=== PATIENT | female | born 1980 | race Hispanic/Latino ===

== ENCOUNTER 2017-07-26 18:37 | Emergency (ER) | payer OTHER, MEDICARE ==
[~2017-07-26 18:37] MED LIST: HYDR-4060 PO; METR500T PO; NAPR220C15 PO; NORG1TAB15 PO; PRED1TAB PO
[2017-07-26 19:12] LABS: APPEARANCE,URINE Clear (CLEAR); BILIRUBIN,URINE Negative (NEGATIVE); COLOR,URINE Yellow (YELLOW); GLUCOSE, URINE (UA) Negative (NEGATIVE); KETONES,URINE Trace mg/dL (NEGATIVE); LEUKOCYTE ESTERASE ,URINE Trace (NEGATIVE); NITRATE,URINE Negative (NEGATIVE); OCCULT BLOOD,URINE Negative (NEGATIVE); PROTEIN,URINE Negative (NEGATIVE); UROBILINOGEN,URINE 0.2 mg/dL (0.2-1.0)
[2017-07-26 19:14] LABS: HCG,QUAL RESULT NEGATIVE (NEGATIVE)
[2017-07-26 19:22] LABS: BACTERIA,URINE Rare /HPF (None Seen); RBC,URINE None Seen /HPF (0-1); WBC,URINE 0-1 /HPF (0-1)
[2017-07-26] MEDS ORDERED: IPRATROPIUM/ALBUTEROL SULFATE 3 ML SOLUTION IH ONE (19:23)
[2017-07-26 19:45] LABS: RAPID GROUP A STREP NEGATIVE (NEGATIVE)
== END 2017-07-26 20:10 | disposition home or self-care (01) ==
LOC: EDH 18:37
DX: J10.1 Influenza due to other identified influenza virus with other respiratory manifestations (principal); Z98.890 Other specified postprocedural states; Z90.49 Acquired absence of other specified parts of digestive tract
CPT/HCPCS: 81001; 81025; 87804; 87880; 94640

== ENCOUNTER 2017-08-16 21:28 | Inpatient (IN) | payer OTHER, MEDICARE ==
[~2017-08-16] VITALS: Ht 160 cm; Wt 64.1 kg
[2017-08-16] MEDS ORDERED: SODIUM CHLORIDE 0.9% 1000ML 2,000 ML IV ONE (21:59)
[2017-08-16] MEDS ORDERED: GUAIFENESIN-CODEINE 5 ML SYRUP ONE (22:00)
[2017-08-16 22:19] LABS: APPEARANCE,URINE Cloudy (CLEAR); BILIRUBIN,URINE Small (NEGATIVE); COLOR,URINE Dark Yellow (YELLOW); GLUCOSE, URINE (UA) Negative (NEGATIVE); KETONES,URINE Negative (NEGATIVE); LEUKOCYTE ESTERASE ,URINE Negative (NEGATIVE); NITRATE,URINE Negative (NEGATIVE); OCCULT BLOOD,URINE Negative (NEGATIVE); PROTEIN,URINE Negative (NEGATIVE)
[2017-08-16 22:26] LABS: BASOPHILS % (AUTO) 0.4 % (0.0-5.0); EOSINOPHILS % (AUTO) 0.8 % (0.0-8.0); HEMATOCRIT 38.9 % (36-48); LYMPHOCYTES % (AUTO) 11.5 % (21.0-51.0); MEAN CORPUSCULAR HEMOGLOBIN 34.1 pg (27.0-33.0); MEAN CORPUSCULAR HGB CONC 34.4 g/dL (32.0-36.0); MONOCYTES % (AUTO) 3.2 % (3.0-13.0); NEUTROPHILS % (AUTO) 84.1 % (40.0-77.0); PLATELET COUNT (AUTO) 342 K/uL (130-400); RED BLOOD CELL COUNT(AUTO) 3.93 MIL/uL (4.00-5.50); RED CELL DISTRIBUTION WIDTH 12.6 % (11.0-15.5); WHITE BLOOD COUNT (AUTO) 17.7 K/uL (4.8-10.8)
[2017-08-16 22:32] LABS: HCG,QUAL RESULT NEGATIVE (NEGATIVE)
[2017-08-16 22:34] LABS: BACTERIA,URINE Few /HPF (None Seen); RBC,URINE None Seen /HPF (0-1); SQUAMOUS EPITHELIAL CELL,UR Few /LPF (0-2); WBC,URINE None Seen /HPF (0-1)
[2017-08-16 22:35] LABS: FINE GRANULAR CASTS,URINE 0-2 /LPF (None Seen); MUCUS,URINE Many LPF (None Seen); RENAL EPITHELIAL CELLS,URINE Few /LPF (None Seen)
[2017-08-16 22:38] LABS: CREATININE 1.1 mg/dL (0.5-1.5); POTASSIUM 3.4 mmol/L (3.5-5.1)
[2017-08-16 22:43] LABS: ALBUMIN 3.6 g/dL (3.5-5.0); BILIRUBIN,TOTAL 0.3 mg/dL (0.2-1.0); TOTAL PROTEIN, SERUM 8.1 g/dL (6.0-8.3)
[2017-08-16] MEDS ORDERED: OSELTAMIVIR PHOSPHATE 75 MG CAP ONE (23:49)
[2017-08-16] MEDS ORDERED: LEVOFLOXACIN 750 MG/D5W 150 ML 150 ML ONE (23:49)
[2017-08-17] MEDS ORDERED: IPRATROPIUM/ALBUTEROL SULFATE 3 ML SOLUTION IH ONE ×2 (00:16→07:26)
[2017-08-17] MEDS ORDERED: IPRATROPIUM/ALBUTEROL SULFATE 3 ML SOLUTION IH PRN (02:15)
[2017-08-17] MEDS: SODIUM CHLORIDE 0.9% 1000ML 1,000 ML IV SCH ×3 (02:15→21:16)
[2017-08-17] MEDS ORDERED: PHARMACY COMMUNICATION MISC SCH (02:15)
[2017-08-17] MEDS ORDERED: SODIUM CHLORIDE 0.9% 1000ML 1,000 ML IV ONE (05:13)
[2017-08-17] MEDS ORDERED: ACETAMINOPHEN 325 MG TAB ONE (05:39)
[2017-08-17] MEDS: OSELTAMIVIR PHOSPHATE 75 MG CAP PO SCH ×2 (09:00→21:16)
[2017-08-17] MEDS ORDERED: LEVOFLOXACIN 500 MG/D5W 100 ML 100 ML ONE (11:19)
[2017-08-17] MEDS ORDERED: OSELTAMIVIR PHOSPHATE 75 MG CAP ONE (11:20)
[2017-08-17 14:16] VITALS: BP 126/82
[2017-08-17] MEDS ORDERED: PRED5SOL PO (14:39)
[2017-08-17] MEDS ORDERED: ACETAMINOPHEN 325 MG TAB PO PRN (15:30)
[2017-08-17 16:00] VITALS: BP 134/64
[2017-08-17] MEDS: METHYLPREDNISOLONE SOD SUCC 40MG/ML 1ML IVP SCH (18:05)
[2017-08-17] MEDS: GUAIFENESIN-DM 200/20 MG 10 ML PO PRN ×2 (18:06→23:24)
[2017-08-17] MEDS ORDERED: PRED5TAB44 PO (18:10)
[2017-08-17] MEDS ORDERED: NORG-1 PO (18:10)
[2017-08-17 20:00] VITALS: BP 130/69
[2017-08-17] MEDS ORDERED: HYDRALAZINE HCL 20 MG/ML VIAL IV PRN (20:15)
[2017-08-17] MEDS ORDERED: ONDANSETRON HCL 4 MG/2 ML VIAL IVP PRN (20:15)
[2017-08-17 23:15] VITALS: BP 118/68
[2017-08-18 04:35] VITALS: BP 125/76
[2017-08-18 05:33] LABS: BASOPHILS % (AUTO) 0.2 % (0.0-5.0); HEMATOCRIT 35.4 % (36-48); LYMPHOCYTES % (AUTO) 15.1 % (21.0-51.0); MEAN CORPUSCULAR HGB CONC 34.8 g/dL (32.0-36.0); MEAN CORPUSCULAR VOLUME 97.7 fL (79-99); MONOCYTES % (AUTO) 1.6 % (3.0-13.0); NEUTROPHILS % (AUTO) 83.1 % (40.0-77.0); PLATELET COUNT (AUTO) 336 K/uL (130-400); RED BLOOD CELL COUNT(AUTO) 3.62 MIL/uL (4.00-5.50); RED CELL DISTRIBUTION WIDTH 12.8 % (11.0-15.5); WHITE BLOOD COUNT (AUTO) 11.2 K/uL (4.8-10.8)
[2017-08-18 05:59] LABS: CREATININE 0.7 mg/dL (0.5-1.5); POTASSIUM 3.8 mmol/L (3.5-5.1)
[2017-08-18] MEDS: METHYLPREDNISOLONE SOD SUCC 40MG/ML 1ML IVP SCH ×2 (06:57→10:17)
[2017-08-18 07:30] VITALS: BP 116/60
[2017-08-18] MEDS ORDERED: ENOXAPARIN SODIUM 40 MG/0.4 ML SYRINGE SQ SCH (09:00)
[2017-08-18] MEDS: SODIUM CHLORIDE 0.9% 1000ML 1,000 ML IV SCH ×2 (09:35→10:15)
[2017-08-18] MEDS: OSELTAMIVIR PHOSPHATE 75 MG CAP PO SCH (10:13)
[2017-08-18] MEDS: GUAIFENESIN-DM 200/20 MG 10 ML PO PRN (10:22)
[2017-08-18 11:00] VITALS: BP 129/72
[2017-08-18] MEDS ORDERED: PRED20TA3 PO (11:04)
[2017-08-18] MEDS ORDERED: ALBU8.5H8 IH (11:04)
[2017-08-18] MEDS ORDERED: OSEL75 PO (11:04)
[2017-08-18] MEDS ORDERED: BENZ-51 PO (11:04)
[2017-08-18] MEDS ORDERED: LEVO500T2 PO (11:04)
[2017-08-18] MEDS ORDERED: LEVOFLOXACIN 500 MG/D5W 100 ML 100 ML IV SCH (11:50)
== END 2017-08-18 17:50 | disposition home or self-care (01) | DRG 872 ==
LOC: EDH 21:28 → EDHIP 08-17 00:02 → 3CH 08-17 13:39
PROVIDERS: ADMIT Family Medicine; ATTEND Family Medicine
DX: A41.9 Sepsis, unspecified organism (principal); E87.2 Acidosis; J20.9 Acute bronchitis, unspecified; E86.0 Dehydration; M06.9 Rheumatoid arthritis, unspecified; Z79.899 Other long term (current) drug therapy; J10.1 Influenza due to other identified influenza virus with other respiratory manifestations; Z90.49 Acquired absence of other specified parts of digestive tract
CPT/HCPCS: 36415; 71046; 80048; 80053; 81001; 81025; 83605; 85025; 87040; 87088; 87633; 87804; 94640; 94664; J1650; J1956; J2920; J7030

== ENCOUNTER 2018-07-05 22:03 | Emergency (ER) | payer MEDICARE ==
[~2018-07-05 22:03] MED LIST changes: +ALBU8.5H8 IH; +AMOX-429 PO; +FOLIC ACID; -HYDR-4060 PO; +METH25VI11 SQ; -METR500T PO; -NAPR220C15 PO; +NORG-1 PO; -NORG1TAB15 PO; -PRED1TAB PO; +PRED5TAB PO; +RANITIDINE PO; +TOFA11TA PO
[2018-07-05 22:30] LABS: HCG,QUAL RESULT NEGATIVE (NEGATIVE)
[2018-07-05 22:31] LABS: APPEARANCE,URINE Clear (CLEAR); BILIRUBIN,URINE Negative (NEGATIVE); COLOR,URINE Yellow (YELLOW); GLUCOSE, URINE (UA) Negative (NEGATIVE); KETONES,URINE Trace mg/dL (NEGATIVE); LEUKOCYTE ESTERASE ,URINE Small (NEGATIVE); NITRATE,URINE Negative (NEGATIVE); OCCULT BLOOD,URINE Moderate (NEGATIVE); PROTEIN,URINE Negative (NEGATIVE); UROBILINOGEN,URINE 0.2 mg/dL (0.2-1.0)
[2018-07-05 22:46] LABS: BACTERIA,URINE Few /HPF (None Seen); CALCIUM OXALATE CRYSTALS,UR Moderate /LPF (None Seen); MUCUS,URINE Moderate LPF (None Seen); SQUAMOUS EPITHELIAL CELL,UR Moderate /HPF (0-2); URIC ACID CRYSTALS,URINE Many /LPF (None Seen)
[2018-07-05 22:50] LABS: BASOPHILS % (AUTO) 0.5 % (0.0-5.0); EOSINOPHILS % (AUTO) 0.2 % (0.0-8.0); LYMPHOCYTES % (AUTO) 17.1 % (21.0-51.0); MEAN CORPUSCULAR HEMOGLOBIN 33.3 pg (27.0-33.0); MEAN CORPUSCULAR HGB CONC 34.1 g/dL (32.0-36.0); MEAN CORPUSCULAR VOLUME 97.8 fL (79-99); MONOCYTES % (AUTO) 3.5 % (3.0-13.0); NEUTROPHILS % (AUTO) 78.7 % (40.0-77.0); PLATELET COUNT (AUTO) 287 K/uL (130-400); RED BLOOD CELL COUNT(AUTO) 3.58 MIL/uL (4.00-5.50); RED CELL DISTRIBUTION WIDTH 12.9 % (11.0-15.5); WHITE BLOOD COUNT (AUTO) 7.6 K/uL (4.8-10.8)
[2018-07-05 23:00] LABS: CREATININE 0.9 mg/dL (0.5-1.5); POTASSIUM 4.4 mmol/L (3.5-5.1)
[2018-07-05] MEDS ORDERED: KETOROLAC TROMETHAMINE 30MG/ML ONE (23:02)
[2018-07-05] MEDS ORDERED: SODIUM CHLORIDE 0.9% 1000ML 1,000 ML IV ONE (23:02)
[2018-07-05] MEDS ORDERED: ONDANSETRON HCL 4 MG/2 ML VIAL ONE (23:02)
[2018-07-05 23:05] LABS: ALBUMIN 3.6 g/dL (3.5-5.0); BILIRUBIN,TOTAL 0.2 mg/dL (0.2-1.0); TOTAL PROTEIN, SERUM 7.8 g/dL (6.0-8.3)
[2018-07-06] MEDS ORDERED: CEFTRIAXONE SODIUM 1 GM ONE (01:25)
[2018-07-06] MEDS ORDERED: PHENAZOPYRIDINE HCL 200 MG TABLET ONE (01:26)
[2018-07-06] MEDS ORDERED: ACETAMINOPHEN-CODEINE 300/30MG TAB ONE (01:27)
[2018-07-06] MEDS ORDERED: SODIUM CHLORIDE 0.9% 50 ML IV ONE (01:27)
== END 2018-07-06 02:04 | disposition home or self-care (01) ==
LOC: EDH 22:03
DX: N39.0 Urinary tract infection, site not specified (principal); N83.201 Unspecified ovarian cyst, right side; R10.31 Right lower quadrant pain; Z88.8 Allergy status to other drugs, medicaments and biological substances
CPT/HCPCS: 36415; 74176; 76830; 76856; 80053; 81001; 81025; 85025; 96361; 96374; 96375; 99284; J0696; J1885; J2405; J7030

== ENCOUNTER 2018-12-24 15:57 | Emergency (ER) | payer MEDICARE ==
[2018-12-24] MEDS ORDERED: KETOROLAC TROMETHAMINE 60 MG/2 ML VIAL ONE (17:05)
== END 2018-12-24 17:30 | disposition home or self-care (01) ==
LOC: EDH 15:57
DX: M75.02 Adhesive capsulitis of left shoulder (principal); M06.9 Rheumatoid arthritis, unspecified; Z88.8 Allergy status to other drugs, medicaments and biological substances; Z98.890 Other specified postprocedural states; Z90.49 Acquired absence of other specified parts of digestive tract
CPT/HCPCS: 99282; J1885

== ENCOUNTER 2019-01-13 23:13 | Emergency (ER) | payer MEDICARE ==
[2019-01-13 23:47] LABS: BASOPHILS % (AUTO) 1.2 % (0.0-5.0); EOSINOPHILS % (AUTO) 1.2 % (0.0-8.0); HEMATOCRIT 40.4 % (36-48); LYMPHOCYTES % (AUTO) 20.2 % (21.0-51.0); MEAN CORPUSCULAR HEMOGLOBIN 31.4 pg (27.0-33.0); MEAN CORPUSCULAR HGB CONC 33.5 g/dL (32.0-36.0); MEAN CORPUSCULAR VOLUME 93.6 fL (79-99); MONOCYTES % (AUTO) 3.5 % (3.0-13.0); NEUTROPHILS % (AUTO) 73.9 % (40.0-77.0); NUCLEATED RED BLOOD CELLS 0.1 % (0.0-0.19); PLATELET COUNT (AUTO) 345 K/uL (130-400); RED BLOOD CELL COUNT(AUTO) 4.32 MIL/uL (4.00-5.50); RED CELL DISTRIBUTION WIDTH 12.3 % (11.0-15.5); WHITE BLOOD COUNT (AUTO) 10.7 K/uL (4.8-10.8)
[2019-01-14] MEDS ORDERED: IBUPROFEN 600 MG TABLET ONE (00:13)
[2019-01-14 00:35] LABS: APPEARANCE,URINE Clear (CLEAR); BILIRUBIN,URINE Negative (NEGATIVE); COLOR,URINE Yellow (YELLOW); GLUCOSE, URINE (UA) Negative (NEGATIVE); KETONES,URINE Negative (NEGATIVE); LEUKOCYTE ESTERASE ,URINE Negative (NEGATIVE); NITRATE,URINE Negative (NEGATIVE); OCCULT BLOOD,URINE Large (NEGATIVE); PROTEIN,URINE Negative (NEGATIVE)
[2019-01-14 00:54] LABS: AMORPHOUS SEDIMENT,UR Rare /LPF (None Seen); BACTERIA,URINE None Seen /HPF (None Seen); MUCUS,URINE Rare LPF (None Seen); SQUAMOUS EPITHELIAL CELL,UR Rare /HPF (0-2); WBC,URINE None Seen /HPF (0-1)
== END 2019-01-14 01:17 | disposition home or self-care (01) ==
LOC: EDH 23:13
DX: N93.9 Abnormal uterine and vaginal bleeding, unspecified (principal); N89.8 Other specified noninflammatory disorders of vagina; M06.9 Rheumatoid arthritis, unspecified; Z88.8 Allergy status to other drugs, medicaments and biological substances
CPT/HCPCS: 36415; 81001; 84702; 85025; 86900; 86901

== ENCOUNTER 2019-11-17 10:00 | Inpatient (IN) | payer MEDICARE ==
[~2019-11-17] VITALS: Ht 163.8 cm; Wt 70.7 kg
[~2019-11-17 10:00] MED LIST changes: -ALBU8.5H8 IH; -AMOX-429 PO; +FOLI1TAB15 PO; -FOLIC ACID; +METF-444 PO; -METH25VI11 SQ; +METHOTREXATE IJ; -NORG-1 PO; -RANITIDINE PO; -TOFA11TA PO; +[UNRECOGNIZED DRUG - CODE] SQ
[2019-11-20 11:20] LABS: CREATININE 0.6 mg/dL (0.5-1.5); POTASSIUM 3.4 mmol/L (3.5-5.1)
[2019-11-20 11:25] LABS: INR 0.89 (0.85-1.15); PROTHROMBIN TIME 9.7 SEC (9.6-11.6)
[2019-11-20 11:27] LABS: APPEARANCE,URINE Clear (CLEAR); BILIRUBIN,URINE Negative (NEGATIVE); COLOR,URINE Yellow (YELLOW); GLUCOSE, URINE (UA) Negative (NEGATIVE); KETONES,URINE Trace mg/dL (NEGATIVE); LEUKOCYTE ESTERASE ,URINE Negative (NEGATIVE); NITRATE,URINE Negative (NEGATIVE); OCCULT BLOOD,URINE Negative (NEGATIVE); PH,URINE 5.5 (5.0-8.0); PROTEIN,URINE Trace mg/dL (NEGATIVE); UROBILINOGEN,URINE 0.2 mg/dL (0.2-1.0)
[2019-11-20 11:28] LABS: BASOPHILS % (AUTO) 0.6 % (0.0-5.0); EOSINOPHILS % (AUTO) 1.2 % (0.0-8.0); HEMATOCRIT 39.3 % (36-48); LYMPHOCYTES % (AUTO) 36.8 % (21.0-51.0); MEAN CORPUSCULAR HGB CONC 33.6 g/dL (32.0-36.0); MEAN CORPUSCULAR VOLUME 95.2 fL (79-99); MONOCYTES % (AUTO) 5.3 % (3.0-13.0); NEUTROPHILS % (AUTO) 55.7 % (40.0-77.0); PLATELET COUNT (AUTO) 327 K/uL (130-400); RED BLOOD CELL COUNT(AUTO) 4.13 MIL/uL (4.00-5.50); RED CELL DISTRIBUTION WIDTH 11.3 % (11.0-15.5); WHITE BLOOD COUNT (AUTO) 8.4 K/uL (4.8-10.8)
[2019-11-20 11:47] LABS: BACTERIA,URINE Rare /HPF (None Seen); RBC,URINE 0-1 /HPF (0-1); SQUAMOUS EPITHELIAL CELL,UR Rare /HPF (0-2); WBC,URINE 0-1 /HPF (0-1)
[2019-11-21 10:01] VITALS: BP 131/71
[2019-11-21] MEDS ORDERED: METR45G TP (10:37)
[2019-11-21] MEDS ORDERED: FAMO20TA8 PO (10:37)
[2019-11-21] MEDS ORDERED: SULF500T8 PO (10:37)
[2019-11-21] MEDS ORDERED: IBUP-2077 PO (10:37)
--- NOTE | 2019-11-21 15:17 | NUR ---
UA INFORMED Seun DIEZ RN OF ABNORMAL POTASSIUM. SHE WILL INFORM DR. BROWER AND CALL BACK.
--- NOTE | 2019-11-21 15:50 | NUR ---
RE: ABNORMAL POTASSIUM SPOKE WITH Seun DIEZ RN. PER DR BROWER, NO NEW ORDERS REGARDING POTASSIUM LEVEL 3.4.
[2019-11-22] VITALS (20 sets, daily range): BP systolic 94–144; BP diastolic 52–92
[2019-11-22] MEDS: CEFAZOLIN SODIUM 1 GM VIAL IVP SCH ×3 (06:00→21:56)
[2019-11-22] MEDS ORDERED: SODIUM CHLORIDE 0.9% 1000ML 1,000 ML IV ONE (10:12)
[2019-11-22] MEDS ORDERED: METOCLOPRAMIDE 10 MG/2 ML VIAL ONE (10:32)
[2019-11-22] MEDS ORDERED: KETOROLAC TROMETHAMINE 15MG/ML ONE (10:32)
[2019-11-22] MEDS ORDERED: ACETAMINOPHEN EXTRA STRENGTH 500 MG TABLET ONE (10:32)
[2019-11-22] MEDS ORDERED: TRANEXAMIC ACID 1000MG/10ML ONE ×2 (10:33→16:30)
[2019-11-22] MEDS ORDERED: CELECOXIB 200 MG CAP ONE (10:33)
[2019-11-22] MEDS ORDERED: CEFAZOLIN SODIUM 1 GM VIAL ONE ×2 (10:44→11:58)
--- NOTE | 2019-11-22 10:53 | NUR ---
SKIN: PT HAS HX OF ROSACEA, FACIAL REDNESS NOTED Addendum: 11/22/19 at 1055 by JUANA HUIZAR RN RN Amended: Links added.
[2019-11-22] MEDS ORDERED: DEXAMETHASONE SOD PHOSPHATE 10MG/ML 1ML VIAL ONE (11:40)
[2019-11-22] MEDS ORDERED: LIDOCAINE PF 2% 5ML ABBOJECT ONE (11:40)
[2019-11-22] MEDS ORDERED: PROPOFOL 10 MG/ML 20ML VIAL IV ONE (11:40)
[2019-11-22] MEDS ORDERED: ROCURONIUM 10MG/1ML SYR 10 MG/ML ML ONE ×2 (11:41→13:48)
[2019-11-22] MEDS ORDERED: SUCCINYLCHOLINE 200MG/10ML SYR ONE (11:41)
[2019-11-22] MEDS ORDERED: FENTANYL CITRATE PF 50 MCG/1 ML 2ML VIAL ONE ×2 (11:41→13:48)
[2019-11-22] MEDS ORDERED: ONDANSETRON HCL 4 MG/2 ML VIAL ONE (11:41)
[2019-11-22] MEDS ORDERED: MIDAZOLAM HCL 1 MG/ML 2ML VIAL ONE (11:41)
[2019-11-22] MEDS ORDERED: EPHEDRINE SULFATE 50 MG/ML AMPULE ONE (13:15)
[2019-11-22] MEDS ORDERED: MEPERIDINE-PF 25 MG/ML SYG ONE (15:56)
[2019-11-22] MEDS ORDERED: GLYCOPYRROLATE 1 MG/5 ML SYRINGE ONE (15:56)
[2019-11-22] MEDS ORDERED: NEOSTIGMINE 5MG/5ML SYR IV ONE (15:57)
[2019-11-22] MEDS ORDERED: TEMAZEPAM 15 MG CAPSULE PO PRN (16:30)
[2019-11-22] MEDS ORDERED: POTASSIUM CHLORIDE 20MEQ/100ML 100 ML IV PRN (16:30)
[2019-11-22] MEDS ORDERED: TRAMADOL HCL 50 MG TABLET PO PRN (16:30)
[2019-11-22] MEDS ORDERED: KETOROLAC TROMETHAMINE 15MG/ML IV PRN (16:30)
[2019-11-22] MEDS ORDERED: OXYCODONE HCL 5 MG TAB PO PRN (16:30)
[2019-11-22] MEDS ORDERED: LIDOCAINE HCL-MPF 1% 2ML VIAL IV PRN (16:30)
[2019-11-22] MEDS ORDERED: CALCIUM CARBONATE 500 MG TABLET PO PRN (16:30)
[2019-11-22] MEDS ORDERED: DiphenhydrAMINE HCL 50 MG/ML VIAL IVP PRN (16:30)
[2019-11-22] MEDS: ACETAMINOPHEN EXTRA STRENGTH 500 MG TABLET PO SCH (16:30)
[2019-11-22] MEDS ORDERED: POTASSIUM CHLORIDE 10% ELIXIR 20 MEQ/15 ML UDCUP PO PRN (16:30)
[2019-11-22] MEDS ORDERED: FERROUS FUMARATE 324 MG TABLET PO PRN (16:30)
[2019-11-22] MEDS: INSULIN HUMULIN R 100 UNIT/ML 3ML SQ SCH ×2 (16:30→21:00)
[2019-11-22] MEDS ORDERED: POTASSIUM CHLORIDE 20 MEQ ERTAB PO PRN (16:30)
[2019-11-22] MEDS: SODIUM CHLORIDE 0.9% 1000ML 1,000 ML IV SCH (19:36)
[2019-11-22] MEDS ORDERED: FAMOTIDINE 20MG TAB 20 MG TAB PO SCH (21:00)
[2019-11-22] MEDS: SULFASALAZINE 500 MG TAB.DR PO SCH (21:49)
[2019-11-22] MEDS: ASPIRIN 81MG TAB.CHEW PO SCH (21:50)
[2019-11-22] MEDS: FAMOTIDINE 20MG TAB 20 MG TAB PO SCH (21:50)
[2019-11-22] MEDS: CELECOXIB 200 MG CAP PO SCH (21:50)
[2019-11-22] MEDS: METFORMIN HCL 500 MG TABLET PO SCH (21:50)
[2019-11-22] MEDS: PREGABALIN 25 MG CAP PO SCH (21:50)
[2019-11-23] MEDS: ACETAMINOPHEN EXTRA STRENGTH 500 MG TABLET PO SCH ×3 (01:19→16:30)
[2019-11-23] MEDS: OXYCODONE HCL 5 MG TAB PO PRN ×3 (01:21→21:23)
[2019-11-23 03:55] VITALS: BP 112/55
[2019-11-23 04:18] LABS: HEMATOCRIT 27.2 % (36-48); MEAN CORPUSCULAR HEMOGLOBIN 32.6 pg (27.0-33.0); MEAN CORPUSCULAR HGB CONC 32.7 g/dL (32.0-36.0); MEAN CORPUSCULAR VOLUME 99.6 fL (79-99); RED BLOOD CELL COUNT(AUTO) 2.73 MIL/uL (4.00-5.50); RED CELL DISTRIBUTION WIDTH 11.5 % (11.0-15.5)
[2019-11-23] MEDS: CEFAZOLIN SODIUM 1 GM VIAL IVP SCH (04:33)
[2019-11-23 04:36] LABS: CREATININE 0.6 mg/dL (0.5-1.5); POTASSIUM 3.6 mmol/L (3.5-5.1)
[2019-11-23] MEDS: ONDANSETRON HCL 4 MG/2 ML VIAL IVP PRN ×2 (05:09→12:34)
--- NOTE | 2019-11-23 06:00 | NUR ---
PT DANGLED AT BEDSIDE.
[2019-11-23] MEDS: INSULIN HUMULIN R 100 UNIT/ML 3ML SQ SCH ×4 (07:30→21:00)
[2019-11-23 08:12] VITALS: BP 98/56
[2019-11-23] MEDS: FOLIC ACID 1 MG TABLET PO SCH (08:22)
[2019-11-23] MEDS: PREGABALIN 25 MG CAP PO SCH ×2 (08:22→21:21)
[2019-11-23] MEDS: POLYETHYLENE GLYCOL 3350 17 GM POWD.PACK PO SCH (08:22)
[2019-11-23] MEDS: ASPIRIN 81MG TAB.CHEW PO SCH ×2 (08:23→21:21)
[2019-11-23] MEDS: FAMOTIDINE 20MG TAB 20 MG TAB PO SCH ×2 (08:23→21:21)
[2019-11-23] MEDS: SULFASALAZINE 500 MG TAB.DR PO SCH ×2 (08:23→21:21)
[2019-11-23] MEDS: SODIUM CHLORIDE 0.9% 1000ML 1,000 ML IV SCH (08:23)
[2019-11-23] MEDS: APPL TP SCH ×2 (08:31→21:00)
[2019-11-23] MEDS: METRONIDAZOLE TP SCH ×2 (08:31→21:00)
[2019-11-23] MEDS: METFORMIN HCL 500 MG TABLET PO SCH ×2 (08:37→21:00)
[2019-11-23] MEDS: CELECOXIB 200 MG CAP PO SCH ×2 (08:37→21:20)
--- NOTE | 2019-11-23 08:37 | NUR ---
bs=97 poor appetite. held glucophage. will continue to monitor.
[2019-11-23 12:29] VITALS: BP 93/59
--- NOTE | 2019-11-23 12:29 | NUR ---
INITIAL AND REFERRAL TO [facility] AND [facility] TO PATIENT, UP IN CHAIR AT BEDSIDE, HX OF RA, ND HIP REVISION, LAST 4 YEARS AGO- NO DME- HAS BENCH IN SHOWER, HAS RAISED TOLIET JOSE G WITH HAND BARS. LIVES WITH MOM AND SON, MOM HELPS WITH ADLS ON OCCIASION, STATES MOSTLY INDEPENDENT. MOM TO HELP WITH TRANSPORT ON DISCHARGE ORDER FOR HOME HEALTH AND DME- [facility]. DECLINED 3 IN ONE CHAIR- [facility] FOR , WILL SEND, FOLLOW UP FOR DC IN AM Addendum: 11/23/19 at 1231 by MARINA SNOWDEN RN CM Amended: Links added.
[2019-11-23 17:01] VITALS: BP 121/69
[2019-11-23 19:51] VITALS: BP 110/59
[2019-11-23 23:38] VITALS: BP 107/60
[2019-11-24] MEDS: ACETAMINOPHEN EXTRA STRENGTH 500 MG TABLET PO SCH ×2 (00:30→08:26)
[2019-11-24 03:34] VITALS: BP 104/57
[2019-11-24] MEDS: INSULIN HUMULIN R 100 UNIT/ML 3ML SQ SCH ×2 (07:11→11:30)
[2019-11-24 07:30] VITALS: BP 111/71
[2019-11-24] MEDS: CELECOXIB 200 MG CAP PO SCH (08:24)
[2019-11-24] MEDS: ASPIRIN 81MG TAB.CHEW PO SCH (08:25)
[2019-11-24] MEDS: POLYETHYLENE GLYCOL 3350 17 GM POWD.PACK PO SCH (08:25)
[2019-11-24] MEDS: SULFASALAZINE 500 MG TAB.DR PO SCH (08:25)
[2019-11-24] MEDS: PREGABALIN 25 MG CAP PO SCH (08:25)
[2019-11-24] MEDS: METFORMIN HCL 500 MG TABLET PO SCH (08:25)
[2019-11-24] MEDS: FAMOTIDINE 20MG TAB 20 MG TAB PO SCH (08:25)
[2019-11-24] MEDS: FOLIC ACID 1 MG TABLET PO SCH (08:25)
[2019-11-24] MEDS: METRONIDAZOLE TP SCH (08:26)
[2019-11-24] MEDS: APPL TP SCH (08:26)
[2019-11-24] MEDS ORDERED: PREDNISONE 5 MG TABLET PO SCH (09:00)
[2019-11-24 11:00] VITALS: BP 98/52
--- NOTE | 2019-11-24 15:29 | NUR ---
WAS ADVISED BY [facility] THAT MEDICARE WILL NOT PAY FOR THE WKR- IT WILL BE PRIVATE PAY- ADVISED YULIANA TO PLESE CALL THE PT OR FAMILY TO MAKE THAT ARRANGEMENT Addendum: 11/24/19 at 1534 by MARINA SNOWDEN RN CM Amended: Links added.
--- NOTE | 2019-11-24 15:40 | NUR ---
ORTHO SURGEON DR. BROWER IN TO SEE PATIENT. ORDERS RECEIVED FOR DISCHARGE. WILL CALL REPORT TO HOME HEALTH AND ARRANGE TRANSPORT HOME WITH FAMILY.
[2019-11-24] MEDS ORDERED: ASPI-1005 PO (15:52)
[2019-11-24] MEDS ORDERED: HYDR-4457 PO (15:52)
--- NOTE | 2019-11-24 16:40 | NUR ---
INSTRUCTIONS DISCHARGE INSTRUCTIONS GIVEN TO PATIENT USING TEACH BACK. F/U APPOINTMENT IS TO BE MADE BY PATIENT ON WEDNESDAY WHEN THE OFFICE IS OPEN. NEW PRESCRIPTIONS SENT ELECTRONICALLY TO PATIENT'S PREFERRED PHARMACY. ALL PRINTED INFORMATION AND MD INSTRUCTIONS PLACED IN DISCHARGE PACKET. NO QUESTIONS OR CONCERNS VOICED. DRESSING HAS BEEN CHANGED PER MD ORDER. REPORT HAS BEEN CALLED TO [facility]. THEY WILL SEE PATIENT TOMORROW.
[2019-11-25] MEDS ORDERED: BISACODYL 10 MG SUPP.RECT RC PRN (16:30)
== END 2019-11-24 17:00 | disposition home health service (06) | DRG 468 ==
LOC: DAHIP 11-22 07:49 → EDSTATUS 11-22 12:00 → 3DH 11-22 17:58
PROVIDERS: ADMIT Orthopaedic Surgery; ATTEND Orthopaedic Surgery
PROC: 0SR901Z Replacement of Right Hip Joint with Metal Synthetic Substitute, Open Approach (ICD-10-PCS; principal; 2019-11-22 13:48)
PROC: 0SP90JZ Removal of Synthetic Substitute from Right Hip Joint, Open Approach (ICD-10-PCS; 2019-11-22 13:48)
PROC: 3E0T3BZ Introduction of Anesthetic Agent into Peripheral Nerves and Plexi, Percutaneous Approach (ICD-10-PCS; 2019-11-22 13:48)
DX: T84.090A Other mechanical complication of internal right hip prosthesis, initial encounter (principal); M06.9 Rheumatoid arthritis, unspecified; E11.9 Type 2 diabetes mellitus without complications; G89.29 Other chronic pain; Z96.641 Presence of right artificial hip joint; E66.9 Obesity, unspecified; Z68.26 Body mass index [BMI] 26.0-26.9, adult; Y92.89 Other specified places as the place of occurrence of the external cause; Z90.710 Acquired absence of both cervix and uterus; Z90.49 Acquired absence of other specified parts of digestive tract; Z88.8 Allergy status to other drugs, medicaments and biological substances; Y79.3 Surgical instruments, materials and orthopedic devices (including sutures) associated with adverse incidents; Y92.9 Unspecified place or not applicable
CPT/HCPCS: 36415; 73503; 80048; 81001; 82948; 85014; 85018; 85025; 85027; 85610; 86850; 86900; 86901; 87641; 88300; 88305; 96372; 97039; G0378; J0330; J0690; J1100; J1885; J2001; J2175; J2250; J2405; J2704; J2710; J2765; J3010; J3490; J7030; J7120; J7512

== ENCOUNTER → 2020-02-07 | Outpatient (CLI) | payer MEDICARE ==
[~2020-02-07] MED LIST changes: +ASPI-1005 PO; +FAMO20TA8 PO; +HYDR-4457 PO; -METHOTREXATE IJ; +METR45G TP; +SULF500T8 PO; -[UNRECOGNIZED DRUG - CODE] SQ
== END | disposition home or self-care (01) ==
LOC: RAH 13:14
PROVIDERS: ATTEND Orthopaedic Surgery
DX: M25.451 Effusion, right hip (principal)
CPT/HCPCS: 73700

== ENCOUNTER → 2020-07-22 | Outpatient (CLI) | payer MEDICARE | END | disposition home or self-care (01) | LOC: RAH 10:41 | PROVIDERS: ATTEND Orthopaedic Surgery | DX: M16.7 Other unilateral secondary osteoarthritis of hip (principal); N83.201 Unspecified ovarian cyst, right side; Z96.641 Presence of right artificial hip joint | CPT/HCPCS: 73721 ==

== ENCOUNTER 2021-11-28 06:45 | Day surgery (SDC) | payer MEDICARE ==
[2021-11-27 11:13] LABS: BASOPHILS % (AUTO) 0.5 % (0.0-5.0); EOSINOPHILS % (AUTO) 3.4 % (0.0-8.0); HEMATOCRIT 41.9 % (36-48); LYMPHOCYTES % (AUTO) 24.9 % (21.0-51.0); MEAN CORPUSCULAR HEMOGLOBIN 31.1 pg (27.0-33.0); MEAN CORPUSCULAR HGB CONC 33.2 g/dL (32.0-36.0); MEAN CORPUSCULAR VOLUME 93.7 fL (79-99); MONOCYTES % (AUTO) 3.4 % (3.0-13.0); NEUTROPHILS % (AUTO) 67.5 % (40.0-77.0); PLATELET COUNT (AUTO) 324 K/uL (130-400); RED BLOOD CELL COUNT(AUTO) 4.47 MIL/uL (4.00-5.50); RED CELL DISTRIBUTION WIDTH 11.8 % (11.0-15.5); WHITE BLOOD COUNT (AUTO) 9.6 K/uL (4.8-10.8)
[2021-11-27 11:20] LABS: CREATININE 0.7 mg/dL (0.5-1.5); POTASSIUM 3.8 mmol/L (3.5-5.1)
[2021-11-27 12:25] VITALS: BP 121/65
[2021-11-28] VITALS (17 sets, daily range): BP systolic 78–120; BP diastolic 36–95
[~2021-11-28] VITALS: Ht 160 cm; Wt 68.6 kg
[~2021-11-28 06:45] MED LIST changes: -ASPI-1005 PO; +CEFAZOLIN SODIUM 2 GM VIAL IV SCH; -HYDR-4457 PO; +IBUP-2071 PO; +METH1VIA6 IJ; -METR45G TP; +PRED1TAB PO; -PRED5TAB PO; +SARI200P SQ; -SULF500T8 PO
[2021-11-28] MEDS ORDERED: CEFAZOLIN SODIUM 1 GM VIAL ONE (07:15)
[2021-11-28] MEDS ORDERED: LACTATED RINGERS 1000ML 1,000 ML IV ONE (07:15)
[2021-11-28] MEDS ORDERED: BUPIVACAINE/PF 0.25% 30ML VIAL IJ ONE (08:01)
[2021-11-28] MEDS ORDERED: LIDOCAINE PF 100MG/5ML (2%) SYRINGE 5ML ONE (08:06)
[2021-11-28] MEDS ORDERED: FENTANYL CITRATE PF 50 MCG/1 ML 2ML VIAL ONE (08:07)
[2021-11-28] MEDS ORDERED: MIDAZOLAM HCL 1 MG/ML 2ML VIAL ONE (08:07)
[2021-11-28] MEDS ORDERED: PROPOFOL 10 MG/ML 20ML VIAL IV ONE (08:07)
[2021-11-28] MEDS ORDERED: IOPAMIDOL 10 ML VIAL ONE (08:08)
== END 2021-11-28 09:50 | disposition home or self-care (01) ==
LOC: DAH 06:45
PROVIDERS: ATTEND Student in an Organized Health Care Education/Training Program
DX: M16.12 Unilateral primary osteoarthritis, left hip (principal); M24.152 Other articular cartilage disorders, left hip; G89.29 Other chronic pain; E66.9 Obesity, unspecified; E11.9 Type 2 diabetes mellitus without complications; Z79.899 Other long term (current) drug therapy; Z20.822 Contact with and (suspected) exposure to COVID-19
CPT/HCPCS: 20610; 36415; 73503; 77002; 80048; 82948 ×3; 85025; 87635; A4215; A4221; A4222; A4223; A4663; C9803; J0690; J1030; J2001; J2250; J2704; J3010; J3490; J7120; Q9966

== ENCOUNTER → 2022-06-15 | Outpatient (CLI) | payer MEDICARE ==
[~2022-06-15] MED LIST changes: -CEFAZOLIN SODIUM 2 GM VIAL IV SCH
== END | disposition home or self-care (01) ==
LOC: RAH 13:55
PROVIDERS: ATTEND Student in an Organized Health Care Education/Training Program
DX: M47.22 Other spondylosis with radiculopathy, cervical region (principal)
CPT/HCPCS: 72141

== ENCOUNTER → 2023-12-08 | Outpatient (CLI) | payer MEDICARE ==
[2023-12-08 15:01] LABS: BASOPHILS # (AUTO) 0.08 K/uL (0.00-0.20); BASOPHILS % (AUTO) 0.6 % (0.0-5.0); EOSINOPHILS % (AUTO) 3.8 % (0.0-8.0); HEMATOCRIT 44.1 % (36-48); IMMATURE GRANULOCYTE ABSOLUTE 0.05 K/uL (0-1); LYMPHOCYTES # (AUTO) 4.7 K/uL (1.0-4.8); LYMPHOCYTES % (AUTO) 35.1 % (21.0-51.0); MEAN CORPUSCULAR HGB CONC 32.2 g/dL (32.0-36.0); MEAN CORPUSCULAR VOLUME 93.2 fL (79-99); MONOCYTES # (AUTO) 0.7 K/uL (0.1-1.0); MONOCYTES % (AUTO) 5.1 % (3.0-13.0); NEUTROPHILS # (AUTO) 7.3 K/uL (1.8-7.7); PLATELET COUNT (AUTO) 345 K/uL (130-400); RED BLOOD CELL COUNT(AUTO) 4.73 MIL/uL (4.00-5.50); RED CELL DISTRIBUTION WIDTH 11.9 % (11.0-15.5); WHITE BLOOD COUNT (AUTO) 13.3 K/uL (4.8-10.8)
[2023-12-08 16:01] LABS: ERYTHROCYTE SEDIMENTATION RATE 24 MM/HR (0-20)
== END | disposition home or self-care (01) ==
LOC: RAH 13:00
PROVIDERS: ATTEND Orthopaedic Surgery
DX: M25.551 Pain in right hip (principal); Z96.641 Presence of right artificial hip joint
CPT/HCPCS: 36415; 73700; 85025; 85651; 86140

== ENCOUNTER → 2024-01-10 | Outpatient (CLI) | payer MEDICARE ==
[~2024-01-10] MED LIST changes: +IOHEXOL 180 MG/ML 20 ML VIAL ONE
[2024-01-10 12:03] LABS: INR 0.92 (0.85-1.15); PARTIAL THROMBOPLASTIN TIME 24.7 SEC (26.3-35.5); PROTHROMBIN TIME 9.8 SEC (9.6-11.6)
[2024-01-10 13:07] LABS: APPEARANCE BODY FLUID CLOUDY (CLEAR); BODY FLUID WBC 244 /cu. mm.; COLOR,BODY FLUID RED (LT YELLOW); SPECIMENTYPE,BODY FLUID OTHER
[2024-01-10 13:08] LABS: BODY FLUID RBC 13175 /cu. mm.
[2024-01-10 13:51] LABS: BF EOSINOPHIL 1 %; BF LYMPHOCYTE 16 %; BF MESOTHELIAL 7 %; BF MONOCYTE 5 %; BF TOTAL CELLS COUNTED 100
[2024-01-10 13:52] LABS: TOTAL VOLUME,BODY FLUID 0.5 mL
== END | disposition home or self-care (01) ==
LOC: RAH 09:49
PROVIDERS: ATTEND Orthopaedic Surgery
DX: M25.551 Pain in right hip (principal); R26.2 Difficulty in walking, not elsewhere classified; T84.84XA Pain due to internal orthopedic prosthetic devices, implants and grafts, initial encounter; Z79.01 Long term (current) use of anticoagulants; M06.9 Rheumatoid arthritis, unspecified; E11.9 Type 2 diabetes mellitus without complications; Z98.890 Other specified postprocedural states; Z79.899 Other long term (current) drug therapy; Y82.8 Other medical devices associated with adverse incidents
CPT/HCPCS: 20610; 27093; 36415; 77002; 85610; 85730; 87071; 87076; 87205; 89051; Q9965